=== PATIENT | female | born 1965 | race Two or more races ===

== ENCOUNTER → 2016-10-11 | Outpatient (CLI) | payer OTHER ==
--- NOTE | 2016-10-11 17:11 | US ---
EXAMINATION TYPE: US thyroid st tissue head/neck DATE OF EXAM: 10/11/2016 COMPARISON: NONE CLINICAL HISTORY: E03.9 hypothyroidism, unspecified type. Patient states hyperthyroidism when order s tates hypothyroidism, radiation to thyroid 10yrs ago and on Synthroid GLAND SIZE: Right Lobe: 1.7 x 0.4 x 0.3 cm Overall Parenchyma: homogenous Left Lobe: too small to measure Overall Parenchyma: too small to assess Isthmus Thickness: 0.1 cm NODULES RIGHT: # of nodules measured on right: 0 LEFT: # of nodules measured on left: 0 ISTHMUS: # of nodules measured in the isthmus: 0 Bilateral neck scanned, no evidence of lymphadenopathy. Very small discernable tissue seen on the right with no nodules, unable to discern any thyroid tissue on the left with certainty. IMPRESSION: Thyroid gland is small. No discrete thyroid mass identified.
== END | disposition home or self-care (01) ==
LOC: RADUSWWP 16:46
PROVIDERS: ATTEND Family Medicine
DX: E03.4 Atrophy of thyroid (acquired) (principal); E03.9 Hypothyroidism, unspecified
CPT/HCPCS: 76536